=== PATIENT | female | born 1985 | race Asian ===

== ENCOUNTER → 2016-10-11 | Outpatient (CLI) | payer OTHER ==
[~2016-10-11] MED LIST: DOCU-30 PO; HYDR-3240 PO; IBUP800T PO; PREN1COM3 PO
[2016-10-11 12:56] LABS: HEMOGLOBIN 12.9 g/dL (11.7-16.4)
[2016-10-11 13:34] LABS: ASPARTATE AMINO TRANSFERASE 23 U/L (15-37); BLOOD UREA NITROGEN 13 mg/dL (7-18)
== END | disposition home or self-care (01) ==
LOC: CFH 11:04
PROVIDERS: ATTEND Nurse Practitioner Primary Care
DX: Z00.00 Encounter for general adult medical examination without abnormal findings (principal)
CPT/HCPCS: 36415; 80053; 80061; 84439; 84443; 84481; 85027